=== PATIENT | male | born 1975 | race Caucasian/White ===

== ENCOUNTER 2020-01-05 18:33 | Emergency (ER) | payer OTHER ==
[~2020-01-05] VITALS: Ht 175.3 cm; Wt 87.1 kg
[2020-01-05 18:34] VITALS: BP 106/83
[2020-01-05] MEDS ORDERED: ACETAMINOPHEN 325 MG TAB PO ONE (19:00)
[2020-01-05 19:50] VITALS: BP 135/82
== END 2020-01-05 19:50 | disposition home or self-care (01) ==
LOC: MED 18:33
DX: R42 Dizziness and giddiness (principal)
CPT/HCPCS: 90471; 90715; 99283